=== PATIENT | female | born 1985 | race African-American/Black ===

== ENCOUNTER 2018-04-25 09:56 | Outpatient (CLI) | payer MEDICAID ==
[~2018-04-25] VITALS: Ht 162.6 cm; Wt 84.8 kg
[2018-04-25] MEDS ORDERED: ASPIRIN 81M81 MG/TA2 PO (10:17)
[2018-04-25] MEDS ORDERED: PRENATAL PO (10:18)
[2018-04-25] MEDS ORDERED: ENDOMETRIN100 MG VG (10:18)
== END 2018-04-25 11:40 | disposition home or self-care (01) ==
LOC: LDRO 09:56
DX: O16.3 Unspecified maternal hypertension, third trimester (principal); Z3A.30 30 weeks gestation of pregnancy

== ENCOUNTER 2018-04-26 16:33 | Inpatient (IN) | payer MEDICAID ==
[2018-04-26] VITALS (11 sets, daily range): BP systolic 132–179; BP diastolic 80–101; PULSE 64–104; TEMP 97.6–98.4
[~2018-04-26] VITALS: Ht 162.6 cm; Wt 85.0 kg
[~2018-04-26 16:33] MED LIST: ASPIRIN 81M81 MG/TA2 PO; ENDOMETRIN100 MG VG; PRENATAL PO
[2018-04-26 18:23] LABS: COLLECTION METHOD CATHETER
[2018-04-26 18:42] LABS: MUCOUS Present /lpf; PH 5 (5-8); URINE APPEARANCE Hazy; URINE BACTERIA None Seen /hpf; URINE BILIRUBIN Positive (NEGATIVE); URINE BLOOD 1+ (NEGATIVE); URINE COLOR Amber; URINE GLUCOSE Negative (NEGATIVE); URINE KETONE 2+ (NEGATIVE); URINE LEUKOCYTE ESTERASE Negative (NEGATIVE); URINE NITRATE Negative (NEGATIVE); URINE PROTEIN(semi-quant) 3+ (NEGATIVE); URINE RBC 20-50 /hpf; URINE UROBILINOGEN >=4.0 mg/dL (NEGATIVE)
== END 2018-04-26 19:48 | disposition short-term general hospital (02) | DRG 778 ==
LOC: LDRO 16:33 → LDR 18:14
PROVIDERS: Obstetrics & Gynecology
DX: O60.03 Preterm labor without delivery, third trimester (principal); Z3A.30 30 weeks gestation of pregnancy
CPT/HCPCS: J0690; J0702; J3475; J7120